=== PATIENT | female | born 1990 ===

== ENCOUNTER 2020-01-25 18:41 | Outpatient (REF) | payer BC, MEDICAID, SELFPAY ==
[2020-01-25 21:48] LABS: Absolute Basophil Count 0.02 k/cumm (0.0-0.2); Absolute Eosinophil Count 0.32 k/cumm (0.0-0.7); Absolute Lymphocyte Count 1.31 k/cumm (1.2-3.4); Absolute Monocyte Count 0.32 k/cumm (0.11-0.7); Basophils % 0.5; Eosinophils % 8.1; HGB 13.1 g/dL (12.0-15.5); Lymphocytes % 33.3; Mean Corp. HGB Concentration 32.8 g/dL (32.0-36.0); Mean Corpuscular Hemoglobin 28.7 pg (27.0-33.0); Mean Corpuscular Volume 87.5 fL (80-95); Mean Platelet Volume 10.7 fL (8.0-11.0); Monocytes % 8.1; Platelet Count 239 x1000/uL (130-400); RBC 4.57 m/cumm (4.00-5.20); RBC Distribution Width 12.5 % (11.7-14.6); White Blood Cell Count 3.93 k/cumm (4.4-10.8)
[2020-01-25 21:49] LABS: Absolute Neutrophil Count 1.97 k/cumm (1.2-6.7)
[2020-01-25 22:39] LABS: ALT 27 U/L (14-59); AST 17 U/L (15-37); Albumin 3.9 g/dL (3.4-5.0); Alkaline Phosphatase 65 U/L (46-116); Anion Gap 8.7 mmol/L (3-11); BUN 12 mg/dL (7-18); Bilirubin, Total 0.3 mg/dL (0.2-1.0); CO2 25.3 mmol/L (21.0-32.0); CREATININE 0.78 mg/dL (0.55-1.02); Chloride 106 mmol/L (98-107); Glucose 88 mg/dL (74-106); Potassium 4.1 mmol/L (3.5-5.1); Sodium 140 mmol/L (136-145); Total Protein 7.1 g/dL (6.4-8.2)
== END 2020-01-25 19:01 ==
LOC: NCHCN 18:41
PROVIDERS: Visit Provider Nurse Practitioner Community Health
DX: R10.9 Unspecified abdominal pain (principal); K92.1 Melena; R19.7 Diarrhea, unspecified; D72.819 Decreased white blood cell count, unspecified
CPT/HCPCS: 80053; 85025

== ENCOUNTER 2020-05-12 09:31 | Outpatient (REF) | payer BC, MEDICAID, SELFPAY ==
--- NOTE | 2020-05-12 08:50 | PAPFT_PTH ---
PATIENT: CHRISTIANO FOSS LOC: [facility] U#:[id number] AGE/SX: 29/F ROOM: RE05/12/[address]: Liset Mcqueen : 1990 BED: DIS: 05/12/2020 SPEC #: [id number] RECD: 05/13/20 12:54 STATUS: DAMIEN REQ #: [id number] ARNOLD: 05/12/20 08:[address]: Liset Reich DEPT: [facility] Cytology RECD BY: Bobbi Mixon ENTERED: 05/13/20 12:54 SP TYPE: PAPFT OTHR DR: Unknown,Unknown Tissues: 1 - CX/ENDOCX FOR PAP SMEARS Procedures: PAP THIN PREP/[facility] Screening Comments: [id number] ([id number] [facility]) (CHLAMYDIA/GC)
[2020-05-17 12:11] LABS: Chlamydia Result Negative (Negative); GC Result Negative (Negative)
== END 2020-05-12 09:51 ==
LOC: NCHCN 09:31
PROVIDERS: Visit Provider Nurse Practitioner Family
DX: Z00.00 Encounter for general adult medical examination without abnormal findings (principal); Z11.3 Encounter for screening for infections with a predominantly sexual mode of transmission; Z12.4 Encounter for screening for malignant neoplasm of cervix
CPT/HCPCS: 87491; 87591; 88142